=== PATIENT | female | born 1995 | race Caucasian/White ===

== ENCOUNTER 2017-02-22 03:28 | Emergency (ER) | payer MEDICAID ==
[2017-02-22 03:50] VITALS: BP 116/72
[2017-02-22] MEDS ORDERED: Ondansetron 4 MG/2 ML SDV IVPUSH ONE (04:07)
[2017-02-22] MEDS ORDERED: Sodium Chloride 0.9% 10 ML Syringe FLUSH PRN (04:08)
[2017-02-22] MEDS ORDERED: fentaNYL 100 MCG/2 ML SDV IVPUSH ONE (04:11)
--- NOTE | 2017-02-22 04:14 | EDM.PDOC ---
<OfficerMathew - Last Filed: 02/22/17 06:58> ED HPI GENERAL MEDICAL PROBLEM - General Chief Complaint: Abdominal Pain Stated Complaint: STOMACH PAIN Time Seen by Provider: 02/22/17 04:01 Source of Information: Reports: Patient, Family, RN Notes Reviewed History Limitations: Reports: No Limitations - History of Present Illness INITIAL COMMENTS - FREE TEXT/NARRATIVE: 21-year-old female presents emergency department today with complaint of abdominal pain, this was sudden onset abdominal pain. Only in the right lower quadrant right pelvic region. She does admit to vaginal bleeding similar to light menstruation. She does admit to being however she is unsure she know she is less than 1 month does not feel lightheaded is feeling nauseated no shortness of breath or chest pain Right Lower Abdominal Pain Score (Numeric/FACES): 10 - Related Data Allergies Allergy/AdvReac Type Severity Reaction Status Date / Time No Known Allergies Allergy Verified 02/22/17 03:41 Home Meds: Home Meds Albuterol Sulfate [Proair Hfa] 2 puff INH Q4H PRN 06/19/13 [History] Acetaminophen [Tylenol] 650 mg PO Q4H PRN 03/20/15 [History] Acetaminophen/Pyrilam/Pamabrom [Pamprin Multi-Symptom] 2 tab PO Q7H PRN [History] Ondansetron [Take Home: Ondansetron ODT 4 MG, 2 Tab Pack] 4 mg SL Q8H PRN [History] Past Medical History Respiratory History: Reports: Asthma Gastrointestinal History: Reports: GERD Genitourinary History: Reports: UTI, Recurrent OUT PATIENT THERAPIST History: Reports: Other (See Below) Other OB/BYN History: irregular cycles Musculoskeletal History: Reports: Fracture Other Musculoskeletal History: pulled ligaments shoulder - Infectious Disease History Infectious Disease History: Reports: Herpes - Past Surgical History Respiratory Surgical History: Reports: None Social & Family History - Family History Family Medical History: Noncontributory - Tobacco Use Smoking Status *Q: Never Smoker Second Hand Smoke Exposure: No - Caffeine Use Caffeine Use: Reports: Soda - Alcohol Use Days Per Week of Alcohol Use: 0 - Recreational Drug Use Recreational Drug Use: No ED ROS GENERAL - Review of Systems Review Of Systems: See Below Constitutional: Denies: Fever, Chills HEENT: Reports: No Symptoms Respiratory: Reports: No Symptoms Cardiovascular: Reports: No Symptoms GI/Abdominal: Reports: Abdominal Pain, Nausea. Denies: Vomiting : Reports: Irregular Menses Musculoskeletal: Reports: No Symptoms Skin: Reports: No Symptoms ED EXAM, GI/ABD - Physical Exam Exam: See Below Exam Limited By: No Limitations General Appearance: Alert, WD/WN, No Apparent Distress Head: Atraumatic, Normocephalic Neck: Normal Inspection, Supple, Non-Tender, Full Range of Motion Respiratory/Chest: No Respiratory Distress, Lungs Clear, Normal Breath Sounds, No Accessory Muscle Use Cardiovascular: Regular Rate, Rhythm, No Rub GI/Abdominal: Normal Bowel Sounds, Soft, No Organomegaly, No Distention, No Abnormal Bruit, No Mass, Tenderness (Right lower quadrant right pubic region) (Female) Exam: Normal External Exam, Normal Bimanual Exam, Vaginal Bleeding. No: Cervical Dilatation (blood at the os), Cervix Motion Tenderness, Heart Tones, Vaginal Discharge, Vaginal Lesions, Vaginal Tears Course - Vital Signs Last Recorded V/S: Last Vital Signs Temp 36.9 C 02/22/17 03:50 Pulse 82 02/22/17 03:50 Resp 16 02/22/17 03:50 BP 116/72 02/22/17 03:50 Pulse Ox 98 02/22/17 03:50 - Orders/Labs/Meds Orders: Active Orders 24 hr Category Date Time Status Peripheral IV Care [RC] . DIRECTED Care 02/22/17 04:09 Active OB Ltd 1 or More Fetus [US] Stat Exams 02/22/17 06:05 Taken OB Transvaginal [US] Stat Exams 02/22/17 06:05 Taken Sodium Chloride 0.9% [Saline Flush] Med 02/22/17 04:08 Active 10 ml FLUSH ASDIRECTED PRN Peripheral IV Insertion Adult [OM.PC] Urgent Oth 02/22/17 04:08 Ordered Medication Orders Sodium Chloride (Saline Flush) 10 ml FLUSH ASDIRECTED PRN PRN Reason: Keep Vein Open Last Admin: 02/22/17 04:29 Dose: 10 ml Labs: Laboratory Tests 02/22/17 02/22/17 02/22/17 Range/Units 04:08 04:08 04:33 WBC 8.0 (4.5-11.0) K/uL RBC 4.72 (3.30-5.50) M/uL Hgb 13.3 (12.0-15.0) g/dL Hct 39.1 (36.0-48.0) % MCV 83 (80-98) fL MCH 28 (27-31) pg MCHC 34 (32-36) % Plt Count 232 (150-400) K/uL Neut % (Auto) 55 (36-66) % Lymph % (Auto) 32 (24-44) % [place] % (Auto) 10 H (2-6) % Eos % (Auto) 2 (2-4) % Baso % (Auto) 0 (0-1) % Sodium 139 L (140-148) mmol/L Potassium 3.6 (3.6-5.2) mmol/L Chloride 105 (100-108) mmol/L Carbon Dioxide 24 (21-32) mmol/L Anion Gap 13.6 (5.0-14.0) mmol/L BUN 13 (7-18) mg/dL Creatinine 0.7 (0.6-1.0) mg/dL Est Cr Clr Drug Dosing 100.55 mL/min Estimated GFR (MDRD) > 60 (>60) Glucose 113 H (74-106) mg/dL Lactic Acid 0.8 (0.4-2.0) mmol/L Calcium 8.5 (8.5-10.1) mg/dL Total Bilirubin 0.2 D (0.2-1.0) mg/dL AST 15 (15-37) U/L ALT 17 (12-78) U/L Alkaline Phosphatase 55 (46-116) U/L Total Protein 7.3 (6.4-8.2) g/dL Albumin 3.6 (3.4-5.0) g/dL Globulin 3.7 H (2.3-3.5) g/dL Albumin/Globulin Ratio 1.0 L (1.2-2.2) Lipase 206 (73-393) U/L HCG, Quant (0-6) mIU/mL Urine Color Urine Appearance Urine pH (4.5-8.0) Ur Specific Delia (1.008-1.030) Urine Protein (NEGATIVE) mg/dL Urine Glucose (UA) (NEGATIVE) mg/dL Urine Ketones (NEGATIVE) mg/dL Urine Occult Blood (NEGATIVE) Urine Nitrite (NEGATIVE) Urine Bilirubin (NEGATIVE) Urine Urobilinogen (NORMAL) mg/dL Ur Leukocyte Esterase (NEGATIVE) Urine RBC (0-5) Urine WBC (0-5) Ur Epithelial Cells Amorphous Sediment Urine Bacteria Urine Mucus Blood Type Gel Antibody Screen 02/22/17 02/22/17 02/22/17 Range/Units 04:33 04:33 05:23 WBC (4.5-11.0) K/uL RBC (3.30-5.50) M/uL Hgb (12.0-15.0) g/dL Hct (36.0-48.0) % MCV (80-98) fL MCH (27-31) pg MCHC (32-36) % Plt Count (150-400) K/uL Neut % (Auto) (36-66) % Lymph % (Auto) (24-44) % [place] % (Auto) (2-6) % Eos % (Auto) (2-4) % Baso % (Auto) (0-1) % Sodium (140-148) mmol/L Potassium (3.6-5.2) mmol/L Chloride (100-108) mmol/L Carbon Dioxide (21-32) mmol/L Anion Gap (5.0-14.0) mmol/L BUN (7-18) mg/dL Creatinine (0.6-1.0) mg/dL Est Cr Clr Drug Dosing mL/min Estimated GFR (MDRD) (>60) Glucose (74-106) mg/dL Lactic Acid (0.4-2.0) mmol/L Calcium (8.5-10.1) mg/dL Total Bilirubin (0.2-1.0) mg/dL AST (15-37) U/L ALT (12-78) U/L Alkaline Phosphatase (46-116) U/L Total Protein (6.4-8.2) g/dL Albumin (3.4-5.0) g/dL Globulin (2.3-3.5) g/dL Albumin/Globulin Ratio (1.2-2.2) Lipase (73-393) U/L HCG, Quant 236 H (0-6) mIU/mL Urine Color Red Urine Appearance Cloudy Urine pH 6.5 (4.5-8.0) Ur Specific Delia 1.020 (1.008-1.030) Urine Protein Trace (NEGATIVE) mg/dL Urine Glucose (UA) Normal (NEGATIVE) mg/dL Urine Ketones Negative (NEGATIVE) mg/dL Urine Occult Blood Large (NEGATIVE) Urine Nitrite Negative (NEGATIVE) Urine Bilirubin Small (NEGATIVE) Urine Urobilinogen 1 (NORMAL) mg/dL Ur Leukocyte Esterase Small (NEGATIVE) Urine RBC Packed H (0-5) Urine WBC 5-10 H (0-5) Ur Epithelial Cells Few Amorphous Sediment Few Urine Bacteria Rare Urine Mucus Moderate Blood Type B NEGATIVE Gel Antibody Screen Negative Meds: Medications Generic Name Dose Route Start Last Admin Trade Name Freq PRN Reason Stop Dose Admin Sodium Chloride 10 ml 02/22/17 04:08 02/22/17 04:29 Saline Flush FLUSH 10 ml ASDIRECTED PRN Administration Keep Vein Open Discontinued Medications Generic Name Dose Route Start Last Admin Trade Name Freq PRN Reason Stop Dose Admin Fentanyl 50 mcg 02/22/17 04:11 02/22/17 04:29 Sublimaze IVPUSH 02/22/17 04:12 50 mcg ONETIME ONE Administration Ondansetron HCl 4 mg 02/22/17 04:07 02/22/17 04:29 Zofran IVPUSH 02/22/17 04:08 4 mg ONETIME ONE Administration - Re-Assessments/Exams Free Text/Narrative Re-Assessment/Exam: 02/22/17 06:58 Turned over care to Dr. Wolfe at 7 AM, ultrasound was ordered test is pending Departure - Departure Disposition: Home, Self-Care 01 Clinical Impression: RLQ abdominal pain, First trimester - Discharge Information Referrals: PCP,None [Primary Care Provider] - Forms: ED Department Discharge <Dylan Wolfe - Last Filed: 02/22/17 08:49> Course - Vital Signs Text/Narrative:: To See Dr. Baker in the clinic today here at 0930h. - Radiology Interpretation Free Text/Narrative:: Pelvic US suggested R fallopian tube thickening, no other pathology noted. Discussed case with Dr. Leiva, OUT PATIENT THERAPIST, in [place] @ [facility]. Departure - Departure Time of Disposition: 09:15 Condition: fair
--- NOTE | 2017-02-22 09:01 | US ---
Pelvic ultrasound Transabdominal as well as endovaginal images were obtained. There is no identifiable intrauterine or extrauterine gestation at this time. The endometrial stripe is thick measuring 1.5 cm. There are no adnexal masses. There is trace right adnexal fluid. The ova devi are normal in size. Impression: 1. No identifiable at this time. Ectopic cannot be excluded. Recommend ultrasoun d follow-up ultrasound and/or correlation with serial quantitative beta hCG levels.
== END 2017-02-22 08:59 | disposition home or self-care (01) ==
LOC: JP.ED 03:28
DX: O99.89 Other specified diseases and conditions complicating pregnancy, childbirth and the puerperium (principal); R10.31 Right lower quadrant pain; O99.511 Diseases of the respiratory system complicating pregnancy, first trimester; J45.909 Unspecified asthma, uncomplicated; O99.611 Diseases of the digestive system complicating pregnancy, first trimester; K21.9 Gastro-esophageal reflux disease without esophagitis; Z79.899 Other long term (current) drug therapy
CPT/HCPCS: 36415; 76815; 76817; 80053; 81001; 82950; 83605; 83690; 85025; 86850; 86900; 86901; 96374; 96375; 99284; J2405; J3010; J7050; 84702

== ENCOUNTER 2017-03-01 14:18 | Inpatient (IN) | payer MEDICAID ==
[2017-03-01] MEDS ORDERED: HYDROmorphone 0.5 MG/0.5 ML Syringe IVPUSH ONE ×2 (15:45→17:33)
[2017-03-01] MEDS ORDERED: Iopamidol 612 MG/ML 100 ML Bottle IV PRN (15:55)
[2017-03-01] MEDS: Sodium Chloride 0.9% 10 ML Syringe FLUSH PRN ×2 (15:57→16:16)
[2017-03-01] MEDS ORDERED: Sodium Chloride 0.9% 100 ML IV SCH (16:00)
--- NOTE | 2017-03-01 16:09 | EDM.PDOC ---
[id number]: ABDOMINAL PAIN, NAUSEA Time Seen by Provider: 03/01/17 14:40 Source of Information: Reports: Patient History Limitations: Reports: No Limitations - History of Present Illness INITIAL COMMENTS - FREE TEXT/NARRATIVE: 21-year-old female who was had ongoing pelvic pain, vaginal bleeding, now worsening right lower quadrant pain for the past 2 weeks. She was seen in the emergency room a week ago, had a beta hCG quantitative of 236 and a pelvic ultrasound that showed no active . She continued to have vaginal bleeding which has slowed down and almost stopped but her right lower quadrant pain has worsened. No fevers or chills. No nausea or vomiting. She had an OB/ GULLET SLITTER consult 3 days ago and has a recheck on Tuesday of this week. Onset: Gradual Quality: Reports: Sharp, Stabbing Severity: Moderate Worsens with: Reports: Movement Associated Symptoms: Denies: Fever/Chills, Nausea/Vomiting, Shortness of Breath Right Lower Abdominal Pain Score (Numeric/FACES): 10 - Related Data Allergies Allergy/AdvReac Type Severity Reaction Status Date / Time No Known Allergies Allergy Verified 03/01/17 14:37 Home Meds: Home Meds Albuterol Sulfate [Proair Hfa] 2 puff INH Q4H PRN 06/19/13 [History] Acetaminophen [Tylenol] 650 mg PO Q4H PRN 03/20/15 [History] Acetaminophen/Pyrilam/Pamabrom [Pamprin Multi-Symptom] 2 tab PO Q7H PRN [History] Ondansetron [Take Home: Ondansetron ODT 4 MG, 2 Tab Pack] 4 mg SL Q8H PRN [History] Past Medical History - Past Health History Medical/Surgical History: Denies Medical/Surgical History Respiratory History: Reports: Asthma Gastrointestinal History: Reports: GERD Genitourinary History: Reports: UTI, Recurrent QC ANALYST History: Reports: Other (See Below) Other OB/BYN History: irregular cycles Musculoskeletal History: Reports: Fracture Other Musculoskeletal History: pulled ligaments shoulder - Infectious Disease History Infectious Disease History: Reports: Herpes - Past Surgical History Respiratory Surgical History: Reports: None Social & Family History - Family History Family Medical History: Noncontributory - Tobacco Use Smoking Status *Q: Never Smoker Second Hand Smoke Exposure: No - Caffeine Use Caffeine Use: Reports: Soda - Alcohol Use Days Per Week of Alcohol Use: 0 - Recreational Drug Use Recreational Drug Use: No ED ROS GENERAL - Review of Systems Review Of Systems: See Below Constitutional: Denies: Fever, Chills HEENT: Reports: No Symptoms Respiratory: Denies: Shortness of Breath Cardiovascular: Denies: Chest Pain GI/Abdominal: Reports: Abdominal Pain : Reports: No Symptoms Skin: Reports: No Symptoms Neurological: Reports: No Symptoms. Denies: Headache ED EXAM, GI/ABD - Physical Exam Exam: See Below Exam Limited By: No Limitations General Appearance: Alert, No Apparent Distress (Appears uncomfortable but not distressed) Head: Atraumatic Respiratory/Chest: No Respiratory Distress, Lungs Clear Cardiovascular: Regular Rate, Rhythm, Tachycardia GI/Abdominal: Soft, Guarding, Rebound (Has tenderness to palpation with rebound and mild guarding in the right lower quadrant) Neurological: Alert, Oriented Course - Vital Signs Last Recorded V/S: Last Vital Signs Temp 99.0 F 03/02/17 06:51 Pulse 113 H 03/02/17 06:51 Resp 16 03/02/17 06:51 BP 104/49 L 03/02/17 06:51 Pulse Ox 97 03/02/17 06:51 - Orders/Labs/Meds Labs: Laboratory Tests 03/01/17 03/01/17 Range/Units 15:00 15:00 WBC 12.5 H (4.5-11.0) K/uL RBC 4.41 (3.30-5.50) M/uL Hgb 12.8 (12.0-15.0) g/dL Hct 36.9 (36.0-48.0) % MCV 84 (80-98) fL MCH 29 (27-31) pg MCHC 35 (32-36) % Plt Count 252 (150-400) K/uL Neut % (Auto) 75 H (36-66) % Lymph % (Auto) 19 L (24-44) % [place] % (Auto) 5 (2-6) % Eos % (Auto) 1 L (2-4) % Baso % (Auto) 0 (0-1) % Sodium 139 L (140-148) mmol/L Potassium 4.0 (3.6-5.2) mmol/L Chloride 107 (100-108) mmol/L Carbon Dioxide 24 (21-32) mmol/L Anion Gap 12.0 (5.0-14.0) mmol/L BUN 7 (7-18) mg/dL Creatinine 0.6 (0.6-1.0) mg/dL Est Cr Clr Drug Dosing 116.29 mL/min Estimated GFR (MDRD) > 60 (>60) Glucose 108 H (74-106) mg/dL Calcium 8.8 (8.5-10.1) mg/dL HCG, Quant 537 H (0-6) mIU/mL Meds: Medications Discontinued Medications Generic Name Dose Route Start Last Admin Trade Name Freq PRN Reason Stop Dose Admin Albuterol/Ipratropium 3 ml 03/01/17 19:20 03/01/17 19:26 Duoneb 3.0-0.5 Mg/3 Ml NEB 03/01/17 19:21 3 ml ONETIME ONE Administration Benzocaine/Menthol 1 lozenge 03/01/17 19:48 03/02/17 01:05 Cepacol Sore Throat MUCMEM 1 pack Q1H PRN Administration Sore Throat Bupivacaine HCl/Epinephrine Bitart Confirm 03/01/17 19:57 03/01/17 20:55 Marcaine 0.5%/Epinephrine 1:200,000 Administered 03/01/17 19:58 40 ml Dose Administration 50 ml .ROUTE .STK-MED ONE Dexamethasone Confirm 03/01/17 19:56 Dexamethasone Administered 03/01/17 19:57 Dose 4 mg .ROUTE .STK-MED ONE Diphenhydramine HCl 50 mg 03/01/17 19:48 Benadryl IVPUSH Q4H PRN Itching Docusate Sodium 100 mg 03/01/17 19:48 03/02/17 03:46 Colace PO 100 mg BID PRN Administration Constipation Fentanyl Confirm 03/01/17 19:55 Sublimaze Administered 03/01/17 19:56 Dose 250 mcg .ROUTE .STK-MED ONE Fentanyl Confirm 03/01/17 21:09 Sublimaze Administered 03/01/17 21:10 Dose 100 mcg .ROUTE .STK-MED ONE Glycopyrrolate Confirm 03/01/17 19:56 Administered 03/01/17 19:57 Dose 1 mg .ROUTE .STK-MED ONE Hydromorphone HCl 0.5 mg 03/01/17 15:45 03/01/17 15:57 Dilaudid IVPUSH 03/01/17 15:46 0.5 mg ONETIME ONE Administration Hydromorphone HCl 0.5 mg 03/01/17 17:33 03/01/17 17:42 Dilaudid IVPUSH 03/01/17 17:34 0.5 mg ONETIME ONE Administration Sodium Chloride 100 mls @ 3.5 mls/sec 03/01/17 16:00 03/01/17 16:16 Normal Saline IV 03/01/17 23:00 3 mls/sec ASDIRECTED RENE Administration Sodium Chloride 1,000 mls @ 250 mls/hr 03/01/17 17:45 03/01/17 17:43 Normal Saline IV 250 mls/hr ASDIRECTED RENE Administration Lactated Ringer's Confirm 03/01/17 20:37 Ringers, Lactated Administered 03/01/17 20:38 Dose 1,000 mls @ as directed .ROUTE .STK-MED ONE Sodium Chloride 1,000 mls @ 125 mls/hr 03/01/17 22:30 03/02/17 00:18 Normal Saline IV 125 mls/hr ASDIRECTED RENE Administration Iopamidol 100 ml 03/01/17 15:55 03/01/17 16:15 Isovue-300 (61%) IV 03/02/17 15:56 97 ml . DIRECTED PRN Administration RADIOLOGY EXAM Ketorolac Tromethamine Confirm 03/01/17 20:58 Toradol Administered 03/01/17 20:59 Dose 60 mg .ROUTE .STK-MED ONE Lactated Ringer's 1,000 ml 03/01/17 20:30 03/01/17 20:30 Ringers, Lactated IRR 03/01/17 20:31 1,000 ml .STK-MED ONE Administration Neostigmine Methylsulfate Confirm 03/01/17 19:56 Neostigmine Administered 03/01/17 19:57 Dose 5 mg .ROUTE .STK-MED ONE Ondansetron HCl 4 mg 03/01/17 17:33 03/01/17 17:42 Zofran IVPUSH 03/01/17 17:34 4 mg ONETIME ONE Administration Ondansetron HCl Confirm 03/01/17 19:56 Zofran Administered 03/01/17 19:57 Dose 4 mg .ROUTE .STK-MED ONE Oxycodone/Acetaminophen 2 tab 03/01/17 19:48 03/02/17 08:00 Percocet 325-10 Mg PO 1 tab Q4H PRN Administration Pain (moderate 4-6) Promethazine HCl 25 mg 03/01/17 19:48 Phenergan IM Q6H PRN Nausea Propofol Confirm 03/01/17 19:56 Diprivan 20 Ml Administered 03/01/17 19:57 Dose 200 mg .ROUTE .STK-MED ONE Rocuronium Savage Confirm 03/01/17 19:56 Zemuron Administered 03/01/17 19:57 Dose 50 mg .ROUTE .STK-MED ONE Sodium Chloride 10 ml 03/01/17 15:55 03/01/17 16:16 Saline Flush FLUSH 03/01/17 23:00 10 ml ASDIRECTED PRN Administration Keep Vein Open Succinylcholine Chloride Confirm 03/01/17 19:56 Succinylcholine In Ns Pf Administered 03/01/17 19:57 Dose 200 mg .ROUTE .STK-MED ONE Zolpidem Tartrate 5 mg 03/01/17 19:48 03/02/17 01:05 Ambien PO 5 mg BEDTIME PRN Administration Insomnia - Re-Assessments/Exams Free Text/Narrative Re-Assessment/Exam: 03/01/17 16:07 A beta hCG quantitatively was repeated and actually manuelito slightly but still only 537. 03/01/17 16:09 White count is elevated at 13.5. A CT with IV contrast of the abdomen and pelvis was obtained. 03/01/17 17:15 Hemoglobin was normal, vitals were stable but her CT confirmed a complex right adnexal mass containing blood products. This result was discussed with both general surgery and QC ANALYST. Dr. Kaba accepted the patient for a laparoscopic surgical procedure. 0.5 mg of IV Dilaudid gave her some pain relief. Departure - Departure Time of Disposition: 18:58 Disposition: Admitted As Inpatient 66 Condition: Fair Clinical Impression: Adnexal mass Abdominal pain Qualifiers: Abdominal location: right lower quadrant Qualified Code(s): R10.31 - Right lower quadrant pain - Discharge Information
[2017-03-01] MEDS ORDERED: Ondansetron 4 MG/2 ML SDV IVPUSH ONE (17:33)
[2017-03-01] MEDS ORDERED: Sodium Chloride 0.9% 1,000 ML IV SCH ×2 (17:45→22:30)
[2017-03-01] MEDS ORDERED: Albuterol/Ipratropium 3.0-0.5 MG/3 ML Neb Soln NEB ONE (19:20)
[2017-03-01] MEDS ORDERED: diphenhydrAMINE 50 MG/ML SDV IVPUSH PRN (19:48)
[2017-03-01] MEDS ORDERED: Benzocaine/Cetylpyridinium/Menthol Lozenge MUCMEM PRN (19:48)
[2017-03-01] MEDS ORDERED: Promethazine 25 MG/ML SDV IM PRN (19:48)
[2017-03-01] MEDS ORDERED: Docusate Sodium 100 MG Cap PO PRN (19:48)
[2017-03-01] MEDS ORDERED: Zolpidem 5 MG Tab PO PRN (19:48)
[2017-03-01] MEDS ORDERED: fentaNYL 250 MCG/5 ML SDV ONE (19:55)
[2017-03-01] MEDS ORDERED: Rocuronium 50 MG/5 ML Vial ONE (19:56)
[2017-03-01] MEDS ORDERED: Ondansetron 4 MG/2 ML SDV ONE (19:56)
[2017-03-01] MEDS ORDERED: Propofol 200 MG/20 ML SDV ONE (19:56)
[2017-03-01] MEDS ORDERED: Succinylcholine/Normal Saline 200 MG/10 ML Syringe ONE (19:56)
[2017-03-01] MEDS ORDERED: Dexamethasone 4 MG/ML SDV ONE (19:56)
[2017-03-01] MEDS ORDERED: Neostigmine Methylsulfate 1 MG/ML 5 ML Syringe ONE (19:56)
[2017-03-01] MEDS ORDERED: Bupivacaine 0.5%/EPINEPHrine 1:200,000 50 ML MDV ONE (19:57)
[2017-03-01] MEDS ORDERED: Lactated Ringers 1,000 ML ONE (20:37)
[2017-03-01] MEDS ORDERED: Ketorolac 60 MG/2 ML SDV ONE (20:58)
[2017-03-01] MEDS ORDERED: fentaNYL 100 MCG/2 ML SDV ONE (21:09)
[2017-03-01] MEDS: Acetaminophen/oxyCODONE 325-10 MG Tab PO PRN ×2 (22:28→23:23)
--- NOTE | 2017-03-02 01:46 | CONS ---
DATE OF SERVICE: 03/01/2017 REFERRING PHYSICIAN: CONSULTING PHYSICIAN: Tian Kaba MD REASON FOR CONSULTATION: Abdominal pain. HISTORY OF PRESENT ILLNESS: This is a 21-year-old female, who has had some pelvic pain and vaginal bleeding in the right lower quadrant for the last two weeks. The patient was admitted, originally seen in the emergency room, and beta-hCG 236 showing . She continued to have vaginal bleeding. She had previously begun consult and observation was continued. PAST MEDICAL HISTORY: Asthma, reflux, urinary tract infection, shoulder injury, history of herpes. PAST SURGICAL HISTORY: None. SOCIAL HISTORY: She does not smoke. 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 PHYSICAL EXAMINATION: VITAL SIGNS: Temperature 99, blood pressure 128/72, pulse 102, respirations 16, 99% on room air. HEENT: Pupils were equal, round, reactive to light. NECK: Supple and nontender. LUNGS: Clear to auscultation bilaterally. ABDOMEN: Bowel sounds positive. Pain with palpation on right lower quadrant. EXTREMITIES: Full range of motion. Strength 5/5. NEUROLOGICAL: Oriented x3. PSYCH: No gross depression. IMAGING: I did review the CT scan, which suggest an ectopic on the right and possible appendicitis obviously also on the right. The patient and I discussed her differential. Obviously, she has an episode of bleeding which is again related to her ectopic . The patient will be taken to the operating room for tubal ligation and possible drainage. In addition, the appendix looks abnormal. This would be resected at that time. ASSESSMENT: The patient and I discussed risks, benefits, alternatives, and limitations, including, but not limited to infection, bleeding, perforation to abdominal structures. We also discussed the implications on a tubal ligation. She understands these risks and wished to proceed. Tian Kaba MD /[id number]
[2017-03-02] MEDS: Acetaminophen/oxyCODONE 325-10 MG Tab PO PRN ×2 (03:35→08:00)
[2017-03-02 06:52] VITALS: BP 104/49
--- NOTE | 2017-03-02 08:07 | OR ---
DATE OF PROCEDURE: 03/01/2017 PROCEDURE: 1. Removal of ectopic ([id number]). 2. Laparoscopic appendectomy. PREOPERATIVE DIAGNOSES: 1. Ectopic . 2. Concern for appendicitis. POSTOPERATIVE DIAGNOSES: 1. Ectopic . 2. Concern for appendicitis. INDICATIONS: This is a 21-year-old female with an elevated beta HCG and a nonviable . On CT scan, the patient was found to have this nonviable in the right adnexal structures. There was also concern for gross blood. In addition, the patient had inflammation at the tip of the appendix in addition to its right lower quadrant abdominal pain on concerning for appendicitis. This was noted on the same CT scan preoperatively. Risks benefits, alternatives, and limitations, including, but not limited to infection, bleeding, and injury to abdominal structures were explained to the patient and wished to proceed. ANESTHESIA: General/local. DESCRIPTION OF PROCEDURE: The patient was placed in supine position. A supraumbilical curvilinear incision was made. A Veress needle was used to enter the abdomen without abnormality and a drop test was performed without abnormality. After this, the abdomen was subsequently insufflated. After this the abdomen was entered using Optiview trocar. An additional 10 and another 5 mm ports were entered under direct visualization to the left abdomen. There was immediately noted to be blood around the uterus on the right side. The fallopian tube contained the nonviable consistent with findings on CT scan. This was subsequently transected using a white load staplers and delivered with a bag and sent to pathology. The clot was then suctioned completely and the abdomen was thoroughly irrigated. A 10 flat Kenton-Jenkins drains were placed in the right lower quadrant. Due to the CT scan, concerns for appendicitis, the appendix was identified and is noted to be large in caliber with may be mild amount of inflammation. Therefore, this would be transected pathology. Both staple lines were inspected of bleeding, but there was none. The abdomen was then inspected for clot. The left ovary and associated superstructure were inspected without abnormality. The area was removed. The wounds were closed with 0 Vicryl and 4-0 Vicryl interrupted running fashion after being thoroughly irrigated. Dermabond was applied. Tian Kaba MD /[id number]
--- NOTE | 2017-03-08 17:18 | DISCH ---
DISCHARGE DIAGNOSES: 1. Ectopic . 2. Appendicitis. COMPLICATIONS: None. ROLL FORMER: None. HOSPITALIZATIONS: None. CONSULTING PHYSICIANS: None. SUMMARY OF HOSPITAL COURSE: A pleasant 21-year-old female, seen in the emergency room, and diagnosed with ectopic . There was also a concern for appendicitis, therefore, a laparoscopic appendectomy was performed at the same time. Prior to discharge, the patient's pain was well controlled. She had no nausea, vomiting, shortness of breath, or chest pain. She was tolerating diet, and no complications. FOLLOWUP: Follow up surgery, 7 to 14 days. ACTIVITY: No lifting greater than 30 pounds x30 days. DISCHARGE MEDICATIONS: Please see MAR, but include Lorcet for pain.
== END 2017-03-02 12:41 | disposition home or self-care (01) | DRG 777 ==
LOC: JP.ED 14:18 → JP.SDS 17:18 → JP.2SS 19:48
PROVIDERS: ADMIT Surgery; ATTEND Surgery
PROC: 0UT54ZZ Resection of Right Fallopian Tube, Percutaneous Endoscopic Approach (ICD-10-PCS; principal; 2017-03-01)
PROC: 0DTJ4ZZ Resection of Appendix, Percutaneous Endoscopic Approach (ICD-10-PCS; principal; 2017-03-01)
PROC: 10T24ZZ Resection of Products of Conception, Ectopic, Percutaneous Endoscopic Approach (ICD-10-PCS; principal; 2017-03-01)
DX: O00.10 Tubal pregnancy without intrauterine pregnancy (principal); K37 Unspecified appendicitis; J45.909 Unspecified asthma, uncomplicated; Z87.440 Personal history of urinary (tract) infections; K21.9 Gastro-esophageal reflux disease without esophagitis
CPT/HCPCS: 36415; 74177; 80048; 84702; 85025; 85027; 88304; 88305; 94640; 96361; 96365; 96372; 96375; 96376; 99285-25; A9270-GY; J1100; J1170; J1885; J2405; J2704; J3010; J7030; J7040; J7050; J7120; J7620; Q9967